=== PATIENT | male | born 1950 | race Caucasian/White ===

== ENCOUNTER 2016-08-29 16:50 | Inpatient (IN) | payer MEDICARE, OTHER ==
[~2016-08-29] VITALS: Ht 182.9 cm; Wt 99.0 kg
[~2016-08-29 16:50] MED LIST changes: -BETAPACE 80MG80 MG PO
[2016-08-29 22:16] VITALS: BP 119/83; PULSE 83; TEMP 97.5
[2016-08-29 22:52] LABS: HEMATOCRIT 44.5 % (42.0-52.0); HEMOGLOBIN 15.6 g/dl (13.5-18.0)
[2016-08-30] VITALS (11 sets, daily range): BP systolic 88–142; BP diastolic 60–81; PULSE 47–69; TEMP 97.2–98.4
[2016-08-31 01:06] VITALS: BP 97/61; PULSE 49; TEMP 97.3
[2016-08-31 05:21] VITALS: BP 116/65; PULSE 48; TEMP 97.7
[2016-08-31 07:43] LABS: CALCIUM 8.6 mg/dL (8.4-10.2); CREATININE, serum 0.92 mg/dL (0.66-1.25); POTASSIUM 4.1 mmol/L (3.4-5.0)
[2016-08-31 08:50] VITALS: BP 109/64; PULSE 50
[2016-08-31 09:26] VITALS: BP 111/63; PULSE 51
[2016-08-31 13:15] VITALS: BP 123/75; PULSE 52; TEMP 97.7
[2016-08-31] MEDS ORDERED: BETAPACE 80MG80 MG PO (13:29)
== END 2016-08-31 14:15 | disposition home or self-care (01) | DRG 310 ==
LOC: COL.ER 16:50 → SURG 20:12
PROVIDERS: Family Medicine
DX: I48.0 Paroxysmal atrial fibrillation (principal); I10 Essential (primary) hypertension; E78.5 Hyperlipidemia, unspecified; Z87.891 Personal history of nicotine dependence
CPT/HCPCS: 99239; J2250; J3010; J7030

== ENCOUNTER → 2016-08-29 | Outpatient (CLI) | payer MEDICARE, OTHER ==
[~2016-08-29] MED LIST: ASPIRIN 81M81 MG/TA2 PO; BETAPACE 80MG80 MG PO; COZAAR100 MG PO; DUO-KAPS1 CAP; ELIQUIS 5MG PO; EPA1000 MG PO; LUTEIN20 M1 PO; MEVACOR40 MG PO; MULTAQ400 MG PO; NORCO 325 MG-51 TAB PO; TENORMIN 5050 MG/TAB PO
[2016-08-29 16:39] LABS: BASO % 0.6 % (0.0-2.0); EOS # 0.2 (0.0-0.7); EOS % 3.1 % (0-4.0); GRAN # 4.5 (1.4-6.5); GRAN % 63.7 % (42.2-75.2); HEMATOCRIT 43.1 % (42.0-52.0); HEMOGLOBIN 15.2 g/dl (13.5-18.0); LYMPH # 1.7 (1.2-3.4); LYMPH % 24.2 % (20.0-51.0); MEAN CELL VOLUME 89 fl (80.0-100.0); MEAN CORPUSCULAR HEMOGLOBIN 31 pg (27.0-31.0); MEAN CORPUSCULAR HGB CONC 35 g/dl (33.0-37.0); MEAN PLATELET VOLUME 10.2 fl (7.4-10.4); MONO # 0.6 (0.1-0.6); MONO % 8.3 % (1.7-9.3); PLATELET COUNT 254 K/mm3 (130-400); RED BLOOD COUNT 4.85 M/mm3 (4.20-5.60); REDCELL DISTRIBUTION WIDTH-CV 12.2 % (11.5-14.5)
[2016-08-29 17:05] LABS: ADJUSTED CALCIUM 8.6 mg/dL (8.4-10.2); ALANINE AMINOTRANSFERASE 23 U/L (21-72); ALBUMIN 4.6 gm/dL (3.5-5.0); ALKALINE PHOSPHATASE 89 U/L (50-136); BILIRUBIN,TOTAL 0.7 mg/dL (0.0-1.0); BLOOD UREA NITROGEN 21 mg/dL (9-20); CALCIUM 9.1 mg/dL (8.4-10.2); CARBON DIOXIDE 22 mmol/L (22-30); CREATININE, serum 1.12 mg/dL (0.66-1.25); GLUCOSE 91 mg/dL (74-106); MAGNESIUM 2.4 mg/dL (1.6-2.3); POTASSIUM 3.9 mmol/L (3.4-5.0); SODIUM 136 mmol/L (137-145)
[2016-08-29 17:06] LABS: ANION GAP 12 mmol/L (7-16); CHLORIDE 102 mmol/L (98-107)
[2016-08-29 17:17] LABS: B-TYPE NATRIURETIC PEPTIDE 2870 pg/mL (0-125)
[2016-08-29 17:18] LABS: TROPONIN-I < 0.012 ng/mL (0.000-0.034)
== END ==
LOC: COL.RAD 16:16 → COL.LAB 16:16
PROVIDERS: Internal Medicine
DX: I48.0 Paroxysmal atrial fibrillation (principal)

== ENCOUNTER 2017-01-06 20:31 | Emergency (ER) | payer MEDICARE, OTHER ==
[~2017-01-06] VITALS: Ht 182.9 cm; Wt 102.7 kg
[~2017-01-06 20:31] MED LIST changes: +BETAPACE 80MG80 MG PO; -EPA1000 MG PO; +OMEGA-3 FISH1000 MG PO
[2017-01-06 20:35] VITALS: TEMP 97.3
[2017-01-06 21:24] LABS: BASO % 0.6 % (0.0-2.0); EOS # 0.4 (0.0-0.7); EOS % 5.6 % (0-4.0); GRAN # 3.2 (1.4-6.5); GRAN % 52.2 % (42.2-75.2); HEMATOCRIT 42.2 % (42.0-52.0); HEMOGLOBIN 14.7 g/dl (13.5-18.0); LYMPH % 31.5 % (20.0-51.0); MEAN CELL VOLUME 91 fl (80.0-100.0); MEAN CORPUSCULAR HEMOGLOBIN 32 pg (27.0-31.0); MEAN CORPUSCULAR HGB CONC 35 g/dl (33.0-37.0); MEAN PLATELET VOLUME 10.1 fl (7.4-10.4); MONO # 0.6 (0.1-0.6); MONO % 9.8 % (1.7-9.3); PLATELET COUNT 209 K/mm3 (130-400); RED BLOOD COUNT 4.63 M/mm3 (4.20-5.60); WHITE BLOOD COUNT 6.2 K/mm3 (4.8-10.8)
[2017-01-06 21:33] LABS: ADJUSTED CALCIUM 8.8 mg/dL (8.4-10.2); ALANINE AMINOTRANSFERASE 29 U/L (21-72); ALBUMIN 4.6 gm/dL (3.5-5.0); ALKALINE PHOSPHATASE 102 U/L (50-136); ANION GAP 13 mmol/L (7-16); BILIRUBIN,TOTAL 0.6 mg/dL (0.0-1.0); BLOOD UREA NITROGEN 19 mg/dL (9-20); CALCIUM 9.3 mg/dL (8.4-10.2); CARBON DIOXIDE 19 mmol/L (22-30); CHLORIDE 104 mmol/L (98-107); CREATININE, serum 0.94 mg/dL (0.66-1.25); GLUCOSE 153 mg/dL (74-106); POTASSIUM 3.7 mmol/L (3.4-5.0); SODIUM 136 mmol/L (137-145); TOTAL PROTEIN 7.6 gm/dL (6.4-8.2)
[2017-01-06 21:35] LABS: INR 1.1 (0.8-3.0); PROTHROMBIN TIME 12.6 SECONDS (9.7-12.8)
[2017-01-06 21:38] LABS: PARTIAL THROMBOPLASTIN TIME 31.9 SECONDS (26.0-37.0)
[2017-01-06 21:45] LABS: B-TYPE NATRIURETIC PEPTIDE 131 pg/mL (0-125); TROPONIN-I < 0.012 ng/mL (0.000-0.034)
[2017-01-06 23:00] VITALS: BP 119/87; PULSE 65
[2017-01-07] MEDS ORDERED: MULTI VITAMINS1 TAB PO (10:49)
[2017-01-07] MEDS ORDERED: BETAPACE 120MG120 MG PO (10:52)
== END 2017-01-06 23:00 | disposition home or self-care (01) ==
LOC: COL.ER 20:31
PROVIDERS: Emergency Medicine
DX: I48.91 Unspecified atrial fibrillation (principal); I10 Essential (primary) hypertension; Z79.01 Long term (current) use of anticoagulants; Z79.82 Long term (current) use of aspirin; Z98.890 Other specified postprocedural states

== ENCOUNTER 2017-01-07 10:20 | Day surgery (SDC) | payer MEDICARE, OTHER ==
[2017-01-07] VITALS (7 sets, daily range): BP systolic 81–103; BP diastolic 59–72; PULSE 46–66; TEMP 97.8
[~2017-01-07] VITALS: Ht 183 cm; Wt 99.5 kg
[2017-01-07] MEDS ORDERED: MULTI VITAMINS1 TAB PO (10:49)
[2017-01-07] MEDS ORDERED: BETAPACE 120MG120 MG PO (10:52)
== END 2017-01-07 12:47 | disposition home or self-care (01) ==
LOC: COL.CAR 10:20
DX: I48.0 Paroxysmal atrial fibrillation (principal)
CPT/HCPCS: J2250; J3010; J7030

== ENCOUNTER 2017-03-18 19:33 | Emergency (ER) | payer MEDICARE, OTHER ==
[~2017-03-18] VITALS: Ht 182.9 cm; Wt 102.3 kg
[~2017-03-18 19:33] MED LIST changes: +BETAPACE 120MG120 MG PO; +MULTI VITAMINS1 TAB PO
[2017-03-18 19:41] VITALS: TEMP 97.1
[2017-03-18 20:17] LABS: BASO % 0.5 % (0.0-2.0); EOS # 0.5 (0.0-0.7); EOS % 7.4 % (0-4.0); GRAN # 2.8 (1.4-6.5); GRAN % 46.1 % (42.2-75.2); HEMATOCRIT 41.4 % (42.0-52.0); HEMOGLOBIN 14.4 g/dl (13.5-18.0); LYMPH # 2.2 (1.2-3.4); LYMPH % 36.2 % (20.0-51.0); MEAN CELL VOLUME 91 fl (80.0-100.0); MEAN CORPUSCULAR HEMOGLOBIN 32 pg (27.0-31.0); MEAN CORPUSCULAR HGB CONC 35 g/dl (33.0-37.0); MEAN PLATELET VOLUME 10.5 fl (7.4-10.4); MONO # 0.6 (0.1-0.6); MONO % 9.6 % (1.7-9.3); PLATELET COUNT 228 K/mm3 (130-400); RED BLOOD COUNT 4.57 M/mm3 (4.20-5.60); REDCELL DISTRIBUTION WIDTH-CV 12.3 % (11.5-14.5)
[2017-03-18 20:34] LABS: ALANINE AMINOTRANSFERASE 24 U/L (21-72); ALBUMIN 4.3 gm/dL (3.5-5.0); ALKALINE PHOSPHATASE 87 U/L (50-136); ANION GAP 9 mmol/L (7-16); AST,SGOT 30 U/L (15-37); BILIRUBIN,TOTAL 0.3 mg/dL (0.0-1.0); BLOOD UREA NITROGEN 18 mg/dL (9-20); CALCIUM 9.2 mg/dL (8.4-10.2); CARBON DIOXIDE 24 mmol/L (22-30); CHLORIDE 106 mmol/L (98-107); CREATININE, serum 0.96 mg/dL (0.66-1.25); GLUCOSE 105 mg/dL (74-106); MAGNESIUM 2.1 mg/dL (1.6-2.3); PHOSPHOROUS 4.1 mg/dL (2.5-4.5); POTASSIUM 3.9 mmol/L (3.4-5.0); SODIUM 139 mmol/L (137-145); TOTAL PROTEIN 7.3 gm/dL (6.4-8.2)
[2017-03-18 20:45] LABS: TROPONIN-I < 0.012 ng/mL (0.000-0.034)
[2017-03-18 21:25] VITALS: BP 104/72; PULSE 93
[2017-03-19] MEDS ORDERED: BETAPACE 120MG120 MG PO (10:58)
== END 2017-03-18 21:30 | disposition home or self-care (01) ==
LOC: COL.ER 19:33
PROVIDERS: Emergency Medicine
DX: I48.91 Unspecified atrial fibrillation (principal); I10 Essential (primary) hypertension; E78.5 Hyperlipidemia, unspecified; Z79.01 Long term (current) use of anticoagulants; Z79.82 Long term (current) use of aspirin; Z98.890 Other specified postprocedural states

== ENCOUNTER 2017-03-19 09:27 | Day surgery (SDC) | payer MEDICARE, OTHER ==
[~2017-03-19] VITALS: Ht 182.9 cm; Wt 102.2 kg
[2017-03-19] VITALS (7 sets, daily range): BP systolic 76–119; BP diastolic 57–87; PULSE 44–65; TEMP 97.6
[2017-03-19 09:50] LABS: INR 1.3 (0.8-3.0); PROTHROMBIN TIME 14.8 SECONDS (9.7-12.8)
[2017-03-19 10:06] LABS: POTASSIUM 4.6 mmol/L (3.4-5.0)
[2017-03-19 10:49] LABS: THYROID STIMULATING HORMONE 2.8 uIU/mL (0.465-4.680)
[2017-03-19] MEDS ORDERED: BETAPACE 120MG120 MG PO (10:58)
== END 2017-03-19 12:48 | disposition home or self-care (01) ==
LOC: COL.CAR 09:27
PROVIDERS: Internal Medicine Cardiovascular Disease
DX: I48.0 Paroxysmal atrial fibrillation (principal); E78.5 Hyperlipidemia, unspecified; I10 Essential (primary) hypertension; G47.33 Obstructive sleep apnea (adult) (pediatric); Z79.01 Long term (current) use of anticoagulants; Z79.82 Long term (current) use of aspirin; Z87.891 Personal history of nicotine dependence; Z82.49 Family history of ischemic heart disease and other diseases of the circulatory system
CPT/HCPCS: J2250; J3010; J7030

== ENCOUNTER → 2020-11-08 | Outpatient (CLI) | payer MEDICARE, OTHER ==
[~2020-11-08] MED LIST changes: +CEPHALEXIN500 M1 PO; +TOPROL XL 25MG25 MG PO
[2020-11-08 08:42] LABS: CALCIUM 9.1 mg/dL (8.4-10.2); CREATININE, serum 0.94 mg/dL (0.72-1.25); POTASSIUM 4.4 mmol/L (3.5-4.5)
== END ==
LOC: COL.RAD 07:36
PROVIDERS: Family Medicine
DX: K57.92 Diverticulitis of intestine, part unspecified, without perforation or abscess without bleeding (principal)
CPT/HCPCS: Q9967